=== PATIENT | female | born 1960 | race Caucasian/White ===

== ENCOUNTER 2022-10-19 08:30 | Day surgery (SDC) | payer BC ==
[~2022-10-19 08:30] MED LIST: Acetaminophen 325 MG Tab PO SCH; Albuterol 0.083% 2.5 MG/3 ML Neb Soln NEB PRN; EPINEPHrine 1 MG/ML SDV ONE; Lactated Ringers 1,000 ML IV SCH; Lidocaine 1%/Sod Bicarbonate in NS 8.4% 1 ML Syringe IDERM PRN; Morphine 8 MG, EPINEPHrine 0.3 MG, Cefuroxime 750 MG, Ketorolac 30 MG, Sodium Chloride ... PRN; Pregabalin 25 MG Cap PO SCH; Ropivacaine 0.5% 5 MG/ML 30 ML SDV ONE; Sodium Chloride 0.9% 10 ML Syringe FLUSH PRN; Sodium Chloride 0.9% 10 ML Syringe FLUSH SCH; oxyCODONE ER 10 MG TAB.ER PO SCH
[2022-10-19] MEDS ORDERED: Bupivacaine 0.25% 10 ML SDV ONE (08:57)
[2022-10-19] MEDS ORDERED: Triamcinolone Acetonide 40 MG/ML 1 ML SDV ONE (08:57)
[2022-10-19] MEDS ORDERED: Vancomycin 1 GM SDV ONE (08:57)
[2022-10-19] MEDS ORDERED: Tranexamic Acid 1,000 MG/10 ML Vial ONE (08:57)
[2022-10-19] MEDS ORDERED: Ondansetron 4 MG/2 ML SDV ONE (09:30)
[2022-10-19] MEDS ORDERED: Midazolam 1 MG/ML 2 ML SDV ONE ×2 (09:30→11:13)
[2022-10-19] MEDS ORDERED: Ketamine 500 mg/10 ML MDV ONE (09:30)
[2022-10-19] MEDS ORDERED: fentaNYL 100 MCG/2 ML SDV ONE (09:30)
[2022-10-19] MEDS ORDERED: Dexamethasone 4 MG/ML 5 ML MDV ONE (09:30)
[2022-10-19] MEDS ORDERED: Propofol 200 MG/20 ML SDV ONE ×2 (09:30→11:12)
[2022-10-19] MEDS ORDERED: Ketorolac 30 MG/ML SDV ONE (09:30)
[2022-10-19] MEDS ORDERED: Lactated Ringers 1,000 ML ONE (09:30)
[2022-10-19] MEDS ORDERED: ceFAZolin 2 GM Vial ONE (09:30)
[2022-10-19] MEDS ORDERED: Phenylephrine 1% 10 MG/ML SDV ONE (10:09)
[2022-10-19] MEDS ORDERED: fentaNYL 100 MCG/2 ML SDV IVPUSH PRN (11:03)
[2022-10-19] MEDS ORDERED: diphenhydrAMINE 50 MG/ML SDV IVPUSH PRN (11:03)
[2022-10-19] MEDS ORDERED: Midazolam 1 MG/ML 2 ML SDV IVPUSH PRN (11:03)
[2022-10-19] MEDS ORDERED: Phenylephrine HCl In 0.9% NaCl 1 MG/10 ML Vial IVPUSH PRN (11:03)
[2022-10-19] MEDS ORDERED: HYDROmorphone 0.5 MG/0.5 ML Syringe IVPUSH PRN (11:03)
[2022-10-19] MEDS ORDERED: Ondansetron 4 MG/2 ML SDV IVPUSH PRN (11:03)
[2022-10-19] MEDS ORDERED: ePHEDrine 50 MG/ML SDV IVPUSH PRN (11:03)
[2022-10-19] MEDS ORDERED: Albuterol 0.083% 2.5 MG/3 ML Neb Soln NEB PRN (11:03)
[2022-10-19] MEDS ORDERED: Labetalol 100 MG/20 ML MDV ONE (11:18)
[2022-10-19] MEDS ORDERED: HYDROmorphone 0.5 MG/0.5 ML Syringe ONE (11:26)
[2022-10-19] MEDS ORDERED: Acetaminophen/HYDROcodone 325-5 MG Tab PO PRN (15:00)
== END 2022-10-19 16:35 | disposition home or self-care (01) ==
LOC: JD.SDS 08:30
PROVIDERS: ATTEND Orthopaedic Surgery
DX: M17.0 Bilateral primary osteoarthritis of knee (principal); G89.29 Other chronic pain; R00.2 Palpitations; I10 Essential (primary) hypertension; E78.5 Hyperlipidemia, unspecified; Z91.018 Allergy to other foods; Z79.899 Other long term (current) drug therapy
CPT/HCPCS: 0055T; 20610; 27447; 64447; 73560; 97110; 97116; 97161; A9270; C1713; C1776; J0171; J0690; J0697; J1100; J1170; J1885; J2250; J2270; J2370; J2405; J2704; J2795; J3010; J3301; J3370; J3490; J7030; J7120; 01402